=== PATIENT | male | born 1935 | race Caucasian/White ===

== ENCOUNTER 2017-03-16 12:00 | Inpatient (IN) | payer MEDICARE ==
[~2017-03-16] VITALS: Ht 172.7 cm; Wt 83.0 kg
--- NOTE | ~2017-03-16 | EKG ---
[place], [place] ELECTROCARDIOGRAM REPORT NAME: CAT DICKINSON UNIT #: [id number] ROOM: 511 DOCTOR: LICHA LEBLANC MD BIRTHDATE: [birth year] DOS: 03/16/2017 TIME: 12:08:42. RATE AND RHYTHM: Normal sinus rhythm at 68 beats per minute. MI interval is 196 milliseconds. QRS duration 94 milliseconds. Corrected QT interval is 402 milliseconds. QRS axis is -24. IMPRESSION: 1. Normal sinus rhythm. 2. Left axis deviation. 3. Abnormal R-wave progression. 4. This is abnormal EKG. LICHA LEBLANC MD CM:EKGRPT:ELECTROCARDIOGRAM REPORT [id number] LICHA LEBLANC MD
--- NOTE | ~2017-03-16 | CON ---
[place], [place] REPORT OF CONSULTATION NAME: CAT DICKINSON UNIT #: [id number] ROOM: 511 DOCTOR: JACQUI BELL MD BIRTHDATE: [birth year] DOS: 03/16/2017 HISTORY OF PRESENT ILLNESS: This is an 81-year-old apparently who had a heart catheterization three months ago at [facility]. The patient thinks it was Dr. Hooks who did the heart catheterization, no intervention was done. He stated that he was told that everything was normal. The patient came with chest pain across the precordial region. No acute EKG changes suggestion of myocardial ischemia. Hemodynamically stable. His cardiac enzymes are all negative. He is currently taking no medications except Viagra occasionally. Hemodynamically as mentioned, he is stable. PAST MEDICAL HISTORY: Recent chest discomfort with an abnormal stress with cardiac catheterization, which was reported normal. ALLERGIES: None. HOME MEDICATIONS: Pravastatin and Flomax. CARDIAC RISK FACTORS: Former smoker and dyslipidemia. REVIEW OF SYSTEMS: CONSTITUTIONAL: No fever, no chills. HEENT: No visual disturbances or hearing problems. CARDIOVASCULAR: As described in HPI. GASTROINTESTINAL: No nausea, no vomiting. GENITOURINARY: No dysuria. NEUROLOGIC: Stable. PHYSICAL EXAMINATION: VITAL SIGNS: Blood pressure today is 120/80, patient is in sinus rhythm. NECK: Supple, no JVD. LUNGS: Clear. HEART: Sounds are regular. NEUROLOGIC: Stable. LABORATORY DATA: Electrolytes are normal. Cardiac enzymes are normal. Hemoglobin and hematocrit within normal limits. INR is normal. IMPRESSION: Atypical chest discomfort, hyperlipidemia, erectile dysfunction. RECOMMENDATIONS: Agree with the present management. We will try to get cath reports from [facility]. Continue with baby aspirin and had a recent cath and it was normal, no reason to do any further cardiac workup and we will follow up. [place], [place] REPORT OF CONSULTATION NAME: CAT DICKINSON UNIT #: [id number] ROOM: 511 DOCTOR: JACQUI BELL MD BIRTHDATE: [birth year] JACQUI BELL MD CM:CONSTR:REPORT OF CONSULTATION 03/17/17 0940 interface
[~2017-03-16 12:00] MED LIST: FLOMAX0.4 MG PO; FLOVENT 220 M220 MCG INH; NKHM; PRAVACHOL40 MG PO; Vicodin 5/500 505 MG PO
[2017-03-16 12:17] VITALS: BP 121/63
[2017-03-16 12:18] LABS: BASO % 0.1 % (0.0-1.0); EOS % 0.1 % (1.0-4.0); HEMATOCRIT 39.2 % (42.0-52.0); HEMOGLOBIN 13.4 g/dl (14.0-18.0); LYMPH # 1.5 10*3/uL (1.3-4.4); MEAN CELL VOLUME 93.6 fl (80.0-94.0); MEAN CORPUSCULAR HGB CONC 34.2 g/dl (33.0-37.0); MEAN PLATELET VOLUME 11.6 fl (9.6-12.3); MONO # 1.2 10*3/uL (0.1-1.0); MONO % 12.4 % (3.0-9.0); NEUT # 7.2 10*3/uL (2.3-7.9); NEUT % 72.1 % (47.0-73.0); PLATELET COUNT AUTOMATED 167 10*3/uL (130-400); RED BLOOD COUNT 4.19 10*6/uL (4.50-5.90); RED CELL DISTRI WIDTH 13.5 % (0-14.5)
[2017-03-16 12:26] LABS: ACT PARTIAL THROMBO TIME 25.9 SECONDS (20.8-31.5)
[2017-03-16 12:34] LABS: ALBUMIN 3.6 gm/dl (3.1-4.5); ALKALINE PHOSPHATASE 68 U/L (45-117); BUN 20 mg/dl (7-24); CHLORIDE 102 mmol/L (98-107); CREATININE 1.23 mg/dL (0.70-1.30); POTASSIUM 4.2 mmol/L (3.5-5.1); SGOT/AST 22 IU/L (3-35); SGPT/ALT 22 U/L (12-78); SODIUM 135 mmol/L (136-145); TOTAL PROTEIN 7.8 gm/dL (6.4-8.2)
[2017-03-16 12:36] LABS: TROPONIN I < 0.015 ng/ml (<0.045)
[2017-03-16 12:37] VITALS: BP 118/64
[2017-03-16 14:20] VITALS: BP 112/65
[2017-03-16 14:33] VITALS: BP 110/51
--- NOTE | 2017-03-16 14:50 | NUR ---
A 81, admitted to 5E, under the services of LICHA Cruz MD with a diagnosis of CHEST PAIN. Chief complaint is CHEST PAIN THAT STARTED LAST EVENING. PT STATES THE PAIN IS "BURNING". ALSO C/O OF SOB. Patient arrived via stretcher from ER. Monitor applied. Initial assessment completed. Vital signs taken and recorded. LICHA CRUZ MD notified of admission to the unit. Orders received. See assessment for past medical history, medications and allergies. Patient and/or family oriented to unit. [facility] visitation policy reviewed. Clothing/patient valuable form completed. ROSE MOYA
[2017-03-16 16:00] VITALS: BP 107/52
--- NOTE | 2017-03-16 16:19 | NUR ---
DR. JAMES NOTIFIED OF CONSULT.
--- NOTE | 2017-03-16 19:30 | NUR ---
ASSUMED CARE OF PT AT THIS TIME RESPS EASY AND NONLABORED WITH NO S/S OF DISTRESS CALL LIGHT WITH IN REACH, PT HAS VISITORS AT THIS TIME
[2017-03-16 20:00] VITALS: BP 98/56
--- NOTE | 2017-03-16 23:14 | NUR ---
PT RESTING IN BED WITH EYES CLOSED RESPS EASY AND NONLABORED WITH NO S/S OF DISTRESS CALL LIGHT WITH IN REACH
[2017-03-17] VITALS: BP 96/58
[2017-03-17 07:05] LABS: BASO % 0.2 % (0.0-1.0); EOS # 0.1 10*3/uL (0.0-0.4); EOS % 1.5 % (1.0-4.0); HEMATOCRIT 37.8 % (42.0-52.0); HEMOGLOBIN 12.8 g/dl (14.0-18.0); LYMPH # 1.1 10*3/uL (1.3-4.4); LYMPH % 18.8 % (27.0-41.0); MEAN CELL VOLUME 94.7 fl (80.0-94.0); MEAN CORPUSCULAR HGB 32.1 pg (27.0-31.0); MEAN CORPUSCULAR HGB CONC 33.9 g/dl (33.0-37.0); MEAN PLATELET VOLUME 12.1 fl (9.6-12.3); MONO # 0.8 10*3/uL (0.1-1.0); MONO % 13.8 % (3.0-9.0); NEUT # 3.9 10*3/uL (2.3-7.9); NEUT % 65.4 % (47.0-73.0); PLATELET COUNT AUTOMATED 149 10*3/uL (130-400); RED BLOOD COUNT 3.99 10*6/uL (4.50-5.90); RED CELL DISTRI WIDTH 13.6 % (0-14.5)
[2017-03-17 07:32] LABS: ALBUMIN 3.2 gm/dl (3.1-4.5); ALKALINE PHOSPHATASE 61 U/L (45-117); BUN 15 mg/dl (7-24); CHLORIDE 102 mmol/L (98-107); CHOLESTEROL 127 mg/dL (<200); CREATININE 1.13 mg/dL (0.70-1.30); HDL CHOLESTEROL 63 mg/dl (40-60); LDL CHOLESTEROL 51 mg/dL (9-159); SGOT/AST 10 IU/L (3-35); SGPT/ALT 17 U/L (12-78); SODIUM 137 mmol/L (136-145); TOTAL PROTEIN 7.3 gm/dL (6.4-8.2); TRIGLYCERIDES 65 mg/dl (<150); VLDL CHOLESTEROL 13 mg/dL (6-40)
[2017-03-17 07:38] LABS: VITAMIN D, 25-HYDROXY 22.5 ng/mL (30-100)
[2017-03-17 08:00] VITALS: BP 110/50
--- NOTE | 2017-03-17 09:11 | NUR ---
DRAPERY INSTALLER VS X3. PT ON PHONE.
[2017-03-17 12:00] VITALS: BP 104/61
--- NOTE | 2017-03-17 13:31 | NUR ---
NOTIFIED OF ORDERING A STRESS RADHA IN AM. NO NEW ORDERS RECEIVED.
[2017-03-17 16:00] VITALS: BP 127/62
[2017-03-17 20:00] VITALS: BP 106/83
--- NOTE | 2017-03-17 20:00 | NUR ---
ASSUMED CARE OF PATIENT. ASSESSMENT COMPLETE. RESTING IN BED. NO VOICED COMPLAINTS. CALL LIGHT IN REACH. WILL CONTINUE TO MONITOR.
--- NOTE | 2017-03-17 20:44 | NUR ---
POX RECHECK 93% ON 3L NC
--- NOTE | 2017-03-17 20:45 | NUR ---
POX RECHECK 93% RA
--- NOTE | 2017-03-17 20:56 | NUR ---
MEDICATED WITH PRN DULCOLAX FOR C/O CONSTIPATION
--- NOTE | 2017-03-17 22:06 | NUR ---
MEDICATED WITH PRN RESTORIL FOR HELP TO SLEEP.
[2017-03-18] VITALS: BP 102/55
--- NOTE | 2017-03-18 00:33 | NUR ---
POX 90% ON 3L NC. O2 TITRATED TO 4L AT THIS TIME. POX 94%
--- NOTE | 2017-03-18 02:00 | NUR ---
SLEEPING. NO DISTRESS NOTED. O2 INTACT. CM INTACT. CALL LIGHT IN REACH. WILL CONTINUE TO MONITOR.
[2017-03-18 08:00] VITALS: BP 117/67
--- NOTE | 2017-03-18 09:30 | NUR ---
PATIENT TAKEN OFF FLOOR FOR STRESS TEST AT THIS TIME.
--- NOTE | 2017-03-18 10:00 | NUR ---
INFORMED CONSENT SIGNED FOR LEXISCAN WITH DR. LEBLANC. RESTING EKG, SB WITH RARE PVC HR OF 61 AND BP OF 110/70. BREATH SOUNDS FINE CRACKLES, POX 95% VIA RA. COMPLETED ONE MINUTE OF LEXISCAN PROTOCOL RECEIVING LEXISCAN 0.4 MG OVER 10 SECONDS. DENIES CHEST PAIN. NO SYMPTOMS OTHER THAN "FEELING ODD" THAT WAS RELIEVED IN RECOVERY. HAD A PEAK HR OF 86 WITH A BP OF 94/44. LAST RECOVERY HR OF 84 WITH A BP OF 102/60. AWAITING NUCLEAR IMAGING IN STABLE CONDITION.
[2017-03-18 12:00] VITALS: BP 107/72
[2017-03-18 16:00] VITALS: BP 130/67
[2017-03-18 20:00] VITALS: BP 133/70
--- NOTE | 2017-03-18 21:33 | NUR ---
Medicated with Restoril po prn for help with sleep. Will monitor effectiveness. Call light within reach.
--- NOTE | 2017-03-18 22:35 | NUR ---
Patient resting quietly in bed with eyes closed. Restoril effective. Will continue to monitor. Call light within reach.
[2017-03-19] VITALS: BP 118/63
--- NOTE | 2017-03-19 00:40 | NUR ---
24 HR chart check completed.
[2017-03-19 08:00] VITALS: BP 151/86
[2017-03-19 12:00] VITALS: BP 130/72
--- NOTE | 2017-03-19 13:10 | NUR ---
Discharge instructions reviewed with patient/family. Patient receptive and verbalizes understanding. Follow-up care arranged. Written instructions given to patient/family. HEPLOCK DISCONTINUED. ENTERPRISE SYSTEMS MANAGER REMOVED. PATIENT AMBULATORY OFF FLOOR. LÁZARO MENDOZA
== END 2017-03-19 13:10 | disposition home or self-care (01) | DRG 392 ==
LOC: ED 12:00 → 5E 12:52 → EDHOLD 12:52 → 5E 14:11
PROVIDERS: Emergency Medicine; Internal Medicine Hospice and Palliative Medicine; ADMIT Internal Medicine
PROC: 3E073KZ Introduction of Other Diagnostic Substance into Coronary Artery, Percutaneous Approach (ICD-10-PCS; principal; 2017-03-18)
PROC: 4A02XM4 Measurement of Cardiac Total Activity, External Approach (ICD-10-PCS; principal; 2017-03-18)
DX: K21.9 Gastro-esophageal reflux disease without esophagitis (principal); E44.1 Mild protein-calorie malnutrition; E87.1 Hypo-osmolality and hyponatremia; R07.1 Chest pain on breathing; M41.80 Other forms of scoliosis, site unspecified; M51.35 Other intervertebral disc degeneration, thoracolumbar region; R73.9 Hyperglycemia, unspecified; I25.10 Atherosclerotic heart disease of native coronary artery without angina pectoris; N52.9 Male erectile dysfunction, unspecified; E78.5 Hyperlipidemia, unspecified; E53.8 Deficiency of other specified B group vitamins; N40.0 Benign prostatic hyperplasia without lower urinary tract symptoms; E55.9 Vitamin D deficiency, unspecified; Z77.090 Contact with and (suspected) exposure to asbestos; Z87.891 Personal history of nicotine dependence; Z82.49 Family history of ischemic heart disease and other diseases of the circulatory system; Z83.3 Family history of diabetes mellitus; Z79.899 Other long term (current) drug therapy; Z68.29 Body mass index [BMI] 29.0-29.9, adult

== ENCOUNTER → 2018-04-23 | Outpatient (CLI) | payer MEDICARE ==
[2018-04-23 15:07] LABS: BASO % 0.2 % (0.0-1.0); EOS % 0.2 % (1.0-4.0); HEMOGLOBIN 13.6 g/dl (14.0-18.0); LYMPH % 17.5 % (27.0-41.0); MEAN CELL VOLUME 95.2 fl (80.0-94.0); MEAN CORPUSCULAR HGB 32.4 pg (27.0-31.0); MEAN PLATELET VOLUME 11.7 fl (9.6-12.3); MONO # 0.2 10*3/uL (0.1-1.0); MONO % 3.6 % (3.0-9.0); NEUT # 4.6 10*3/uL (2.3-7.9); NEUT % 78.2 % (47.0-73.0); PLATELET COUNT AUTOMATED 156 10*3/uL (130-400); WHITE BLOOD COUNT 5.9 10*3/uL (4.8-10.8)
== END | disposition home or self-care (01) ==
LOC: LAB 10:53
PROVIDERS: Internal Medicine
DX: M25.422 Effusion, left elbow (principal); Z79.899 Other long term (current) drug therapy

== ENCOUNTER → 2018-09-29 | Outpatient (CLI) | payer MEDICARE | END | disposition home or self-care (01) | LOC: RAD 16:14 | DX: J44.9 Chronic obstructive pulmonary disease, unspecified (principal); I51.7 Cardiomegaly; S22.31XD Fracture of one rib, right side, subsequent encounter for fracture with routine healing; X58.XXXD Exposure to other specified factors, subsequent encounter ==

== ENCOUNTER 2019-03-28 16:18 | Inpatient (IN) | payer MEDICARE ==
[~2019-03-28] VITALS: Ht 176.5 cm; Wt 84.8 kg
[2019-03-28 16:19] VITALS: BP 134/72
[2019-03-28 16:48] VITALS: BP 80/42
[2019-03-28 16:49] LABS: BASO % 0.3 % (0.0-1.0); EOS # 0.1 10*3/uL (0.0-0.4); EOS % 1.3 % (1.0-4.0); HEMATOCRIT 40.1 % (42.0-52.0); HEMOGLOBIN 13.6 g/dl (14.0-18.0); LYMPH # 1.7 10*3/uL (1.3-4.4); LYMPH % 21.3 % (27.0-41.0); MEAN CELL VOLUME 95.7 fl (80.0-94.0); MEAN CORPUSCULAR HGB 32.5 pg (27.0-31.0); MEAN CORPUSCULAR HGB CONC 33.9 g/dl (33.0-37.0); MEAN PLATELET VOLUME 11.2 fl (9.6-12.3); MONO # 0.8 10*3/uL (0.1-1.0); MONO % 9.8 % (3.0-9.0); NEUT # 5.2 10*3/uL (2.3-7.9); NEUT % 66.7 % (47.0-73.0); PLATELET COUNT AUTOMATED 183 10*3/uL (130-400); RED BLOOD COUNT 4.19 10*6/uL (4.50-5.90); RED CELL DISTRI WIDTH 13.9 % (0-14.5); WHITE BLOOD COUNT 7.8 10*3/uL (4.8-10.8)
[2019-03-28 17:16] LABS: ALBUMIN 3.2 gm/dl (3.1-4.5); CREATININE 1.55 mg/dL (0.70-1.30); POTASSIUM 4.1 mmol/L (3.5-5.1); TOTAL PROTEIN 7.6 gm/dL (6.4-8.2)
[2019-03-28 17:21] VITALS: BP 122/80
[2019-03-28 18:07] VITALS: BP 120/68
--- NOTE | 2019-03-28 19:00 | NUR ---
A 83, admitted to 5E, under the services of LICHA Cruz MD with a diagnosis of GENERALIZED WEAKNESS,DEHYDRATION. Chief complaint is LOW BP AT HOME, COLD SYMPTOMS FOR 2 WEEKS. Patient arrived via bed from ER. Monitor applied. Initial assessment completed. Vital signs taken and recorded. LICHA CRUZ MD notified of admission to the unit. Orders received. See assessment for past medical history, medications and allergies. Patient and/or family oriented to unit. [address] visitation policy reviewed. Clothing/patient valuable form completed. CHELSY LEDBETTER R
[2019-03-28 20:00] VITALS: BP 113/59
[2019-03-29] VITALS: BP 119/55
[2019-03-29 01:54] LABS: BILIRUBIN NEGATIVE (NEGATIVE); BLOOD NEGATIVE (NEGATIVE); CLARITY CLEAR (CLEAR); COLOR YELLOW (YELLOW); GLUCOSE NEGATIVE (NEGATIVE); KETONE NEGATIVE (NEGATIVE); LEUKO ESTERASE NEGATIVE (NEGATIVE); NITRITE NEGATIVE (NEGATIVE); PH 5.5 (5.0-9.0); SPECIFIC GRAVITY 1.025 (1.005-1.030); UROBILINOGEN 0.2 E.U./dl (0.2-1.0)
[2019-03-29 02:01] LABS: BACTERIA TRACE; FINE GRANULAR CAST 0-2; HYALINE CAST 0-2
[2019-03-29 06:31] LABS: BASO % 0.1 % (0.0-1.0); EOS # 0.1 10*3/uL (0.0-0.4); HEMATOCRIT 35.6 % (42.0-52.0); HEMOGLOBIN 12.1 g/dl (14.0-18.0); LYMPH # 1.3 10*3/uL (1.3-4.4); LYMPH % 17.5 % (27.0-41.0); MEAN CELL VOLUME 96.7 fl (80.0-94.0); MEAN CORPUSCULAR HGB 32.9 pg (27.0-31.0); MEAN PLATELET VOLUME 11.3 fl (9.6-12.3); MONO # 0.7 10*3/uL (0.1-1.0); MONO % 9.9 % (3.0-9.0); NEUT # 5.1 10*3/uL (2.3-7.9); NEUT % 70.9 % (47.0-73.0); PLATELET COUNT AUTOMATED 167 10*3/uL (130-400); RED BLOOD COUNT 3.68 10*6/uL (4.50-5.90); RED CELL DISTRI WIDTH 13.9 % (0-14.5); WHITE BLOOD COUNT 7.1 10*3/uL (4.8-10.8)
[2019-03-29 07:00] LABS: ALBUMIN 2.5 gm/dl (3.1-4.5); ALKALINE PHOSPHATASE 56 U/L (45-117); BUN 19 mg/dl (7-24); CHLORIDE 105 mmol/L (98-107); CHOLESTEROL 126 mg/dL (<200); CREATININE 1.22 mg/dL (0.70-1.30); HDL CHOLESTEROL 50 mg/dl (40-60); IRON 69 ug/dL (65-175); LDL CHOLESTEROL 62 mg/dL (9-159); PHOSPHOROUS 2.6 mg/dL (2.5-4.9); POTASSIUM 4.1 mmol/L (3.5-5.1); SGOT/AST 8 IU/L (3-35); SGPT/ALT 16 U/L (12-78); SODIUM 139 mmol/L (136-145); TOTAL IRON BINDING CAPACITY 206 ug/dl (250-450); TOTAL PROTEIN 6.5 gm/dL (6.4-8.2); TRIGLYCERIDES 72 mg/dl (<150); VLDL CHOLESTEROL 14 mg/dL (6-40)
[2019-03-29 07:32] LABS: VITAMIN D, 25-HYDROXY 22.4 ng/mL (30-100)
[2019-03-29 08:00] VITALS: BP 93/63
[2019-03-29 09:00] VITALS: BP 124/68
--- NOTE | 2019-03-29 10:30 | NUR ---
Build Automation Engineer in to talk to patient. Patient states lives at home with his ex-. There are basement steps in the home. Physician: Dr. Valentino Ulrich [facility]: [facility] Home health services: none Patient's level of ADLs: INDEPENDENT Patient has working utilities: yes DME: none Follow-up physician's appointment after d/c: he prefers to make his own follow up appt after discharge Does patient want to access PORTAL?: no Discharge plan discussed with patient. He lives at home with his ex-. He is independent in his ADLs and ambulation. Discussed home health care services and he denies any home needs at this time. When medically stable he will be discharged to home. His ex- will provide transportation on discharge. JACKY THOMAS
--- NOTE | 2019-03-29 11:30 | NUR ---
Occupational Therapy evaluation received and screen completed. Patient reports he was hospitalized with dehydration and dizziness. He reports that the dizziness has resolved. Patient in bed with LEs elevated and fully dressed in clothing. He reports that he is walking"all around" including to the bathroom, independent in self care and denies the need for OT at this time. Discharge referral per patient's report. Thank you. Orin Jerry OTR/Harris
--- NOTE | 2019-03-29 11:36 | NUR ---
PHYSICAL THERAPY Physical therapy screen completed. Pt reports he is independent with ambulation without an AD and has been going to the bathroom himself without concerns. Reports no episodes of dizziness. Pt reports his will be available for assistance if needed at home. Lives in a one level home. No PT concerns/needs at this time. Thank you Rissa Davenport, PT, DPT
--- NOTE | 2019-03-29 11:48 | NUR ---
SPOKE WITH DR. FELIZ SEALS TO REMOVED MONITOR FROM PT.
[2019-03-29 12:00] VITALS: BP 126/62
--- NOTE | 2019-03-29 12:43 | NUR ---
CALLED DR. PIPER MADE AWARE ORTHOSTATIC BP'S. PT WAS ASYMPTOMATIC. BUT BP'S WAS +
[2019-03-29 16:00] VITALS: BP 130/55
--- NOTE | 2019-03-29 16:15 | NUR ---
PT RESTING IN BED. RESP-EASY AND REGULAR. VISITOR AT HIS SIDE. TEDS APPLIED. IVF INFUSING WITH NO PROBLEM. NO C/O AT THIS TIME. CALL LIGHT IN REACH. SEE SHIFT ASSESSMENT.
[2019-03-29 20:00] VITALS: BP 134/63
[2019-03-30] VITALS: BP 110/50
[2019-03-30 06:23] LABS: BASO % 0.1 % (0.0-1.0); HEMATOCRIT 37.4 % (42.0-52.0); HEMOGLOBIN 12.6 g/dl (14.0-18.0); LYMPH # 1.3 10*3/uL (1.3-4.4); LYMPH % 8.8 % (27.0-41.0); MEAN CELL VOLUME 94.2 fl (80.0-94.0); MEAN CORPUSCULAR HGB 31.7 pg (27.0-31.0); MEAN CORPUSCULAR HGB CONC 33.7 g/dl (33.0-37.0); MEAN PLATELET VOLUME 11.6 fl (9.6-12.3); MONO # 0.6 10*3/uL (0.1-1.0); MONO % 3.9 % (3.0-9.0); NEUT % 86.5 % (47.0-73.0); PLATELET COUNT AUTOMATED 191 10*3/uL (130-400); RED BLOOD COUNT 3.97 10*6/uL (4.50-5.90); RED CELL DISTRI WIDTH 13.3 % (0-14.5); WHITE BLOOD COUNT 15.1 10*3/uL (4.8-10.8)
[2019-03-30 06:52] LABS: BUN 17 mg/dl (7-24); CHLORIDE 110 mmol/L (98-107); CREATININE 1.17 mg/dL (0.70-1.30); POTASSIUM 4.2 mmol/L (3.5-5.1); SODIUM 141 mmol/L (136-145)
[2019-03-30 08:00] VITALS: BP 120/62
[2019-03-30] MEDS ORDERED: PROSCAR5 M1 PO (12:12)
--- NOTE | 2019-03-30 13:00 | NUR ---
[facility] Discharge instructions reviewed with patient/family. Patient receptive and verbalizes understanding. Follow-up care arranged. Written instructions given to patient/family. NIGEL CONTRERAS
== END 2019-03-30 13:00 | disposition home or self-care (01) | DRG 682 ==
LOC: ED 16:18 → 5E 17:55 → EDHOLD 17:55 → 5E 18:26 → EDHOLD 18:26 → 5E 18:26
PROVIDERS: Nurse Practitioner Family; Student in an Organized Health Care Education/Training Program; ADMIT Internal Medicine
DX: N17.9 Acute kidney failure, unspecified (principal); E43 Unspecified severe protein-calorie malnutrition; J18.9 Pneumonia, unspecified organism; J40 Bronchitis, not specified as acute or chronic; I95.1 Orthostatic hypotension; E86.0 Dehydration; R73.9 Hyperglycemia, unspecified; I34.0 Nonrheumatic mitral (valve) insufficiency; R73.03 Prediabetes; E53.8 Deficiency of other specified B group vitamins; E55.9 Vitamin D deficiency, unspecified; N40.0 Benign prostatic hyperplasia without lower urinary tract symptoms; D53.9 Nutritional anemia, unspecified; E87.8 Other disorders of electrolyte and fluid balance, not elsewhere classified; E78.5 Hyperlipidemia, unspecified; Z83.3 Family history of diabetes mellitus; Z82.49 Family history of ischemic heart disease and other diseases of the circulatory system; Z79.899 Other long term (current) drug therapy; Z68.27 Body mass index [BMI] 27.0-27.9, adult

== ENCOUNTER 2019-04-06 13:53 | Emergency (ER) | payer MEDICARE ==
[~2019-04-06] VITALS: Ht 175.2 cm; Wt 81.6 kg
--- NOTE | ~2019-04-06 | EKG ---
[place], [place] ELECTROCARDIOGRAM REPORT NAME: CAT DICKINSON UNIT #: [id number] ROOM: DOCTOR: EPIPHANY DRAFT REPORT BIRTHDATE: [birth year] [facility] Test Date: 2019-04-06 Test Time: 14:41:43 Pat Name: CAT DICKINSON Department: Room: Gender: Chorus Dancer: : 1935 Requested By: MARVIN WILLOUGHBY PA-C Order Number: [id number] Reading MD: Miky Subramanian MD Measurements Intervals [place] Rate: 71 P: 20 HI: 207 QRS: -26 QRSD: 95 T: 22 QT: 413 QTc: 449 Interpretive Statements Sinus rhythm Borderline left axis deviation Low voltage, precordial leads Consider anterior infarct Baseline wander in lead(s) V4 Compared to ECG 03/28/2019 19:27:40 No significant changes Electronically Signed On 04-07-2019 14:40:58 PST by Miky Subramanian MD CM:EKGRPT:ELECTROCARDIOGRAM REPORT [id number] MARVIN WILLOUGHBY PA-C EPIPHANY DRAFT REPORT MARVIN WILLOUGHBY PA-C
[~2019-04-06 13:53] MED LIST changes: +PROSCAR5 M1 PO
[2019-04-06 14:57] LABS: BASO % 0.2 % (0.0-1.0); EOS # 0.1 10*3/uL (0.0-0.4); EOS % 1.4 % (1.0-4.0); HEMATOCRIT 39.1 % (42.0-52.0); HEMOGLOBIN 13.4 g/dl (14.0-18.0); LYMPH # 1.3 10*3/uL (1.3-4.4); LYMPH % 23.3 % (27.0-41.0); MEAN CELL VOLUME 95.8 fl (80.0-94.0); MEAN CORPUSCULAR HGB 32.8 pg (27.0-31.0); MEAN CORPUSCULAR HGB CONC 34.3 g/dl (33.0-37.0); MEAN PLATELET VOLUME 11.6 fl (9.6-12.3); MONO # 0.4 10*3/uL (0.1-1.0); MONO % 7.9 % (3.0-9.0); NEUT # 3.7 10*3/uL (2.3-7.9); NEUT % 66.8 % (47.0-73.0); PLATELET COUNT AUTOMATED 167 10*3/uL (130-400); RED BLOOD COUNT 4.08 10*6/uL (4.50-5.90); RED CELL DISTRI WIDTH 13.6 % (0-14.5); WHITE BLOOD COUNT 5.6 10*3/uL (4.8-10.8)
[2019-04-06 15:07] LABS: INTERNATIONAL NORM RATIO 0.9 (2.0-3.5)
[2019-04-06 15:47] LABS: ALBUMIN 3.3 gm/dl (3.1-4.5); ALKALINE PHOSPHATASE 75 U/L (45-117); BUN 23 mg/dl (7-24); CHLORIDE 102 mmol/L (98-107); CREATININE 1.31 mg/dL (0.70-1.30); POTASSIUM 4.1 mmol/L (3.5-5.1); SGOT/AST 17 IU/L (3-35); SGPT/ALT 29 U/L (12-78); SODIUM 138 mmol/L (136-145); TOTAL PROTEIN 7.3 gm/dL (6.4-8.2)
[2019-04-06 15:49] LABS: TROPONIN I < 0.015 ng/ml (<0.045)
== END 2019-04-06 17:16 | disposition home or self-care (01) ==
LOC: ED 13:53
PROVIDERS: Physician Assistant
DX: R53.1 Weakness (principal); R42 Dizziness and giddiness; E78.00 Pure hypercholesterolemia, unspecified; R79.1 Abnormal coagulation profile; Z79.899 Other long term (current) drug therapy

== ENCOUNTER → 2020-04-10 | Outpatient (CLI) | payer MEDICARE ==
[2020-04-10 13:17] LABS: PTH INTACT 70.5 pg/mL (18.5-88.0); VITAMIN D, 25-HYDROXY 37.4 ng/mL (30-100)
== END | disposition home or self-care (01) ==
LOC: LAB 11:01
PROVIDERS: ATTEND Internal Medicine Nephrology
DX: E55.9 Vitamin D deficiency, unspecified (principal)

== ENCOUNTER → 2020-04-11 | Outpatient (CLI) | payer MEDICARE | END | disposition home or self-care (01) | LOC: US 04-04 08:30 | PROVIDERS: ATTEND Internal Medicine Nephrology | DX: N40.0 Benign prostatic hyperplasia without lower urinary tract symptoms (principal); E83.9 Disorder of mineral metabolism, unspecified ==

== ENCOUNTER → 2021-01-16 | Outpatient (CLI) | payer MEDICARE | END | disposition home or self-care (01) | LOC: RAD 10:41 | PROVIDERS: ATTEND Orthopaedic Surgery | DX: M25.552 Pain in left hip (principal) ==

== ENCOUNTER → 2021-04-05 | Outpatient (CLI) | payer MEDICARE | END | disposition home or self-care (01) | LOC: COVID19 15:10 | PROVIDERS: ATTEND Podiatrist Foot & Ankle Surgery | DX: Z11.52 Encounter for screening for COVID-19 (principal) ==

== ENCOUNTER → 2022-02-11 | Outpatient (CLI) | payer MEDICARE ==
[2022-02-11 09:27] LABS: BILIRUBIN Negative (Negative); BLOOD Negative (Negative); CLARITY Clear (Clear); COLOR Yellow (Yellow); GLUCOSE Negative (Negative); KETONE Negative (Negative); LEUKO ESTERASE Negative (Negative); NITRITE Negative (Negative); PH 6.5 (4.5-8.0); SPECIFIC GRAVITY 1.015 (1.001-1.030); UROBILINOGEN 0.2 E.U./dl (0.0-1.0)
[2022-02-11 10:00] LABS: RBC 0-2 rbc/hpf (0-2); WBC 0-2 wbc/hpf (0-5)
== END | disposition home or self-care (01) ==
LOC: LAB 08:42
PROVIDERS: ATTEND Internal Medicine Nephrology
DX: N18.32 Chronic kidney disease, stage 3b (principal); Z79.899 Other long term (current) drug therapy; N39.0 Urinary tract infection, site not specified; E83.9 Disorder of mineral metabolism, unspecified; I95.0 Idiopathic hypotension

== ENCOUNTER → 2022-07-12 | Outpatient (CLI) | payer MEDICARE ==
[~2022-07-12] MED LIST changes: +ACETAMINOPHEN325 M2 PO; +ASPIRIN81 M1 PO; +ATORVASTATIN CA40 M1 PO; +B121000 MCG/1 IM; +CLARITIN-D 121 EACH PO; +FLUDROCORTISON0.1 MG PO; +KLOR-CON M2020 ME1 PO; +LEVOFLOXACIN750 M2 PO; +LORATADINE-D 11 EACH PO; +MAGNESIUM400 M1 PO; +MEDROL DOSEPAK4 MG PO; +MIDODRINE HCL10 MG PO; +MUCINEX ER600 MG PO; +PATANOL OP; +POTASSIUM CHLO20 MEQ PO; +PRAVASTATIN SOD40 MG PO; +SENOKOT-S TABL1 EACH PO; +VITAMIN D350 MCG PO; +ZITHROMAX TRI-500 M1 PO
[2022-07-12 08:02] LABS: BUN 21 mg/dl (9-23); CHLORIDE 101 mmol/L (98-107); POTASSIUM 3.6 mmol/L (3.4-5.1)
== END | disposition home or self-care (01) ==
LOC: LAB 02:25
PROVIDERS: ATTEND Student in an Organized Health Care Education/Training Program
DX: I95.1 Orthostatic hypotension (principal); E83.42 Hypomagnesemia; E87.6 Hypokalemia

== ENCOUNTER 2022-07-14 10:05 | Emergency (ER) | payer MEDICARE ==
[~2022-07-14] VITALS: Ht 172.7 cm; Wt 68.0 kg
[~2022-07-14 10:05] MED LIST changes: -ACETAMINOPHEN325 M2 PO; -ATORVASTATIN CA40 M1 PO; -KLOR-CON M2020 ME1 PO; -MAGNESIUM400 M1 PO; -POTASSIUM CHLO20 MEQ PO
[2022-07-14] MEDS ORDERED: POTASSIUM CHLO20 MEQ PO (10:24)
[2022-07-14] MEDS ORDERED: ATORVASTATIN CA40 M1 PO (10:24)
[2022-07-14] MEDS ORDERED: MAGNESIUM400 M1 PO (10:25)
[2022-07-14] MEDS ORDERED: KLOR-CON M2020 ME1 PO (10:27)
[2022-07-14] MEDS ORDERED: ACETAMINOPHEN325 M2 PO (10:31)
[2022-07-14 10:36] LABS: BASO % 0.3 % (0.0-1.0); EOS % 0.7 % (1.0-4.0); HEMATOCRIT 33.5 % (42.0-52.0); LYMPH # 0.6 10*3/uL (1.3-4.4); LYMPH % 10.6 % (27.0-41.0); MEAN CELL VOLUME 94.6 fl (80.0-94.0); MEAN CORPUSCULAR HGB 31.6 pg (27.0-31.0); MEAN CORPUSCULAR HGB CONC 33.4 g/dl (33.0-37.0); MEAN PLATELET VOLUME 12.1 fl (9.6-12.3); MONO # 0.5 10*3/uL (0.1-1.0); NEUT # 4.6 10*3/uL (2.3-7.9); NEUT % 79.1 % (47.0-73.0); PLATELET COUNT AUTOMATED 215 10*3/uL (130-400); RED BLOOD COUNT 3.54 10*6/uL (4.50-5.90); RED CELL DISTRI WIDTH 13.8 % (0-14.5); WHITE BLOOD COUNT 5.8 10*3/uL (4.8-10.8)
[2022-07-14 10:46] LABS: ACT PARTIAL THROMBO TIME 26.2 SECONDS (20.0-32.1); INTERNATIONAL NORM RATIO 1.1 (2.0-3.5)
[2022-07-14 10:53] LABS: ALKALINE PHOSPHATASE 173 U/L (46-116); BUN 17 mg/dl (9-23); CHLORIDE 100 mmol/L (98-107); POTASSIUM 3.2 mmol/L (3.4-5.1); SGPT/ALT 49 U/L (10-49)
== END 2022-07-14 13:31 | disposition home or self-care (01) ==
LOC: ED 10:05
PROVIDERS: Internal Medicine
DX: E87.6 Hypokalemia (principal); I95.1 Orthostatic hypotension; I10 Essential (primary) hypertension; Z98.890 Other specified postprocedural states

== ENCOUNTER → 2022-08-06 | Outpatient (CLI) | payer MEDICARE ==
[~2022-08-06] MED LIST changes: +ACETAMINOPHEN325 M2 PO; +ATORVASTATIN CA40 M1 PO; +KLOR-CON M2020 ME1 PO; +MAGNESIUM400 M1 PO; +POTASSIUM CHLO20 MEQ PO
[2022-08-06 08:54] LABS: BUN 24 mg/dl (9-23); CHLORIDE 98 mmol/L (98-107); POTASSIUM 3.5 mmol/L (3.4-5.1)
== END | disposition home or self-care (01) ==
LOC: LAB 08-05 15:38
PROVIDERS: ATTEND Internal Medicine Endocrinology, Diabetes & Metabolism
DX: I95.1 Orthostatic hypotension (principal)

== ENCOUNTER → 2022-08-21 | Outpatient (CLI) | payer MEDICARE ==
[2022-08-21 13:00] LABS: BASO % 0.2 % (0.0-1.0); EOS % 0.4 % (1.0-4.0); HEMATOCRIT 34.3 % (42.0-52.0); LYMPH # 0.9 10*3/uL (1.3-4.4); LYMPH % 17.7 % (27.0-41.0); MEAN CELL VOLUME 97.7 fl (80.0-94.0); MEAN CORPUSCULAR HGB 32.2 pg (27.0-31.0); MEAN CORPUSCULAR HGB CONC 32.9 g/dl (33.0-37.0); MEAN PLATELET VOLUME 11.6 fl (9.6-12.3); MONO # 0.4 10*3/uL (0.1-1.0); MONO % 8.5 % (3.0-9.0); NEUT # 3.8 10*3/uL (2.3-7.9); NEUT % 72.8 % (47.0-73.0); PLATELET COUNT AUTOMATED 208 10*3/uL (130-400); RED BLOOD COUNT 3.51 10*6/uL (4.50-5.90); RED CELL DISTRI WIDTH 15.6 % (0-14.5); WHITE BLOOD COUNT 5.2 10*3/uL (4.8-10.8)
[2022-08-21 13:25] LABS: ALKALINE PHOSPHATASE 476 U/L (46-116); BUN 9 mg/dl (9-23); CHLORIDE 103 mmol/L (98-107); POTASSIUM 3.7 mmol/L (3.4-5.1); SGPT/ALT 165 U/L (10-49); TOTAL PROTEIN 6.6 gm/dL (6.0-8.0)
== END | disposition home or self-care (01) ==
LOC: LAB 12:35
PROVIDERS: Internal Medicine
DX: Z51.11 Encounter for antineoplastic chemotherapy (principal); C34.90 Malignant neoplasm of unspecified part of unspecified bronchus or lung; C79.9 Secondary malignant neoplasm of unspecified site; R16.0 Hepatomegaly, not elsewhere classified; R29.6 Repeated falls

== ENCOUNTER → 2022-08-28 | Outpatient (CLI) | payer MEDICARE | END | disposition home or self-care (01) | LOC: CT 00:45 | PROVIDERS: ATTEND Internal Medicine | DX: Z51.11 Encounter for antineoplastic chemotherapy (principal); C34.90 Malignant neoplasm of unspecified part of unspecified bronchus or lung; C79.9 Secondary malignant neoplasm of unspecified site; R91.1 Solitary pulmonary nodule; K76.89 Other specified diseases of liver; M43.8X6 Other specified deforming dorsopathies, lumbar region; N40.0 Benign prostatic hyperplasia without lower urinary tract symptoms; K80.20 Calculus of gallbladder without cholecystitis without obstruction ==

== ENCOUNTER → 2023-02-25 | Outpatient (CLI) | payer MEDICARE ==
[~2023-02-25] MED LIST changes: +DULCOLAX5 M1 PO; +MEGACE40 MG PO; +Magnesium Oxid400 MG PO; +POTASSIUM CHLO20 ME3 PO; +STIMULANT LAXA1 EACH PO; +VITAMIN D350 MC2 PO
[2023-02-25 10:27] LABS: BASO % 0.2 % (0.0-1.0); EOS % 0.5 % (1.0-4.0); HEMATOCRIT 30.3 % (42.0-52.0); LYMPH # 0.4 10*3/uL (1.3-4.4); LYMPH % 7.3 % (27.0-41.0); MEAN CELL VOLUME 96.8 fl (80.0-94.0); MEAN CORPUSCULAR HGB 32.3 pg (27.0-31.0); MEAN CORPUSCULAR HGB CONC 33.3 g/dl (33.0-37.0); MEAN PLATELET VOLUME 11.1 fl (9.6-12.3); MONO # 0.6 10*3/uL (0.1-1.0); NEUT # 4.8 10*3/uL (2.3-7.9); NEUT % 81.7 % (47.0-73.0); PLATELET COUNT AUTOMATED 199 10*3/uL (130-400); RED BLOOD COUNT 3.13 10*6/uL (4.50-5.90); WHITE BLOOD COUNT 5.9 10*3/uL (4.8-10.8)
[2023-02-25 10:55] LABS: ALKALINE PHOSPHATASE 194 U/L (46-116); BUN 16 mg/dl (9-23); CHLORIDE 104 mmol/L (98-107); POTASSIUM 2.7 mmol/L (3.4-5.1); SGPT/ALT 43 U/L (10-49); TOTAL PROTEIN 7.2 gm/dL (6.0-8.0)
== END | disposition home or self-care (01) ==
LOC: LAB 01:48
PROVIDERS: ATTEND Internal Medicine Medical Oncology
DX: C34.90 Malignant neoplasm of unspecified part of unspecified bronchus or lung (principal)